=== PATIENT | female | born 1940 | race Caucasian/White ===

== ENCOUNTER 2020-10-28 16:14 | Inpatient (IN) | payer MEDICARE ==
[2020-10-28 17:48] LABS: #Basophils 0.1 10x3/uL (0.0-0.2); #Eosinphils 0.2 10x3/uL (0.0-0.5); #Monocytes 0.8 10x3/uL (0.0-1.1); #Neutrophils 6.4 10x3/uL (1.5-8.4); %Basophils 0.9 % (0.0-2.0); %Lymphocytes 17.2 % (18.0-47.0); %Monocytes 9.3 % (0.0-10.0); Hemoglobin 7.7 g/dL (12.0-15.5); Mean Corpuscular HGB CONC 30.9 g/dL (32.0-36.0); Mean Corpuscular Hemoglobin 27.8 pg (27.0-33.0); Mean Corpuscular Volume 89.9 fl (81.6-98.3); Mean Platelet Volume 10.5 fl (7.4-10.4); Platelet Count 336 10x3/uL (150-450); RBC Distribution Width 16.3 % (11.5-14.5); Red Blood Cell (RBC) Count 2.77 10x6/uL (3.90-5.03); White Blood Cell (WBC) Count 9.1 10x3/uL (3.5-10.5)
[2020-10-28 18:01] LABS: ALT (SGPT) 49 U/L (8-55); AST (SGOT) 47 U/L (5-34); Albumin 3.6 g/dL (3.4-4.8); Alkaline Phosphatase 77 U/L (40-110); Anion Gap 15 mmol/L (10-20); BUN (Urea Nitrogen) 27 mg/dL (9.8-20.1); Bilirubin, Total 0.4 mg/dL (0.2-1.2); Calc. Creatinine Clearance 0 mL/min (70-130); Calcium 9.3 mg/dL (7.8-10.44); Carbon Dioxide 22 mmol/L (23-31); Chloride 102 mmol/L (98-107); Globulin 2.8 g/dL (2.4-3.5); Glucose 121 mg/dL (83-110); Potassium 4.1 mmol/L (3.5-5.1); Protein, Total 6.4 g/dL (5.8-8.1); Sodium 135 mmol/L (136-145)
[2020-10-28 18:26] LABS: Bilirubin Neg (Negative); Blood, Urine 150 (Negative); Clarity Clear (Clear); Glucose, Urine (Dipstick) Normal (Negative); Ketone, Urine Negative (Negative); Leukocyte Negative (Negative); Nitrite Negative (Negative); Protein, Urine (Dipstick) Negative (Neg-Trace); Urobilinogen Normal mg/dL (Less than 2); pH, Urine 6.5 (5.0-9.0)
[2020-10-28 18:50] LABS: Bacteria/HPF 2+ HPF (None Seen); RBC/HPF 0-3 HPF (0-3); Squamous Epithelial 0-3 HPF (0-3); WBC/HPF 0-3 HPF (0-3)
[2020-10-29] MEDS ORDERED: Lantus 1000 UNITS/10 ML VIAL SC SCH (00:15)
[2020-10-29 04:16] VITALS: BMI 34.3
[2020-10-29 04:54] LABS: Anion Gap 16 mmol/L (10-20); BUN (Urea Nitrogen) 25 mg/dL (9.8-20.1); Calc. Creatinine Clearance 98 mL/min (70-130); Calcium 9.3 mg/dL (7.8-10.44); Carbon Dioxide 20 mmol/L (23-31); Chloride 105 mmol/L (98-107); Glucose 123 mg/dL (83-110); Magnesium 1.7 mg/dL (1.6-2.6); Potassium 4.1 mmol/L (3.5-5.1); Sodium 137 mmol/L (136-145)
[2020-10-29 05:19] LABS: #Basophils 0.1 10x3/uL (0.0-0.2); #Eosinphils 0.2 10x3/uL (0.0-0.5); #Monocytes 0.9 10x3/uL (0.0-1.1); #Neutrophils 6.2 10x3/uL (1.5-8.4); %Basophils 0.9 % (0.0-2.0); %Eosinophils 2.3 % (0.0-6.0); %Lymphocytes 15.7 % (18.0-47.0); %Monocytes 10.1 % (0.0-10.0); %Neutrophils 70.1 % (40.0-75.0); Hemoglobin 8.8 g/dL (12.0-15.5); Mean Corpuscular HGB CONC 32.4 g/dL (32.0-36.0); Mean Corpuscular Volume 83.4 fl (81.6-98.3); Mean Platelet Volume 10.8 fl (7.4-10.4); Platelet Count 241 10x3/uL (150-450); RBC Distribution Width 17.2 % (11.5-14.5); Red Blood Cell (RBC) Count 3.26 10x6/uL (3.90-5.03); White Blood Cell (WBC) Count 8.9 10x3/uL (3.5-10.5)
[2020-10-29] MEDS ORDERED: METHOTREXATE SC SCH (18:15)
[2020-10-29] MEDS ORDERED: Dextrose 5% in Water 1,000 ML IV PRN (18:16)
[2020-10-29] MEDS ORDERED: HumaLOG 300 UNITS/3 ML VIAL SC PRN (18:16)
[2020-10-29] MEDS ORDERED: Dextrose 50% Abboject 50 ML SYRINGE SLOW IVP PRN (18:16)
[2020-10-29] MEDS: Carvedilol 12.5 MG TAB PO SCH (22:49)
[2020-10-29] MEDS: Lantus 1000 UNITS/10 ML VIAL SC SCH (22:50)
[2020-10-29] MEDS ORDERED: Pantoprazole 40 MG VIAL IVP SCH (23:59)
[2020-10-30] MEDS: Apixaban 5 MG TAB PO SCH (01:51)
[2020-10-30 06:26] LABS: #Basophils 0.1 10x3/uL (0.0-0.2); #Eosinphils 0.2 10x3/uL (0.0-0.5); #Monocytes 0.6 10x3/uL (0.0-1.1); #Neutrophils 4.5 10x3/uL (1.5-8.4); %Basophils 1.1 % (0.0-2.0); %Eosinophils 3.5 % (0.0-6.0); %Monocytes 9.6 % (0.0-10.0); %Neutrophils 67.3 % (40.0-75.0); Mean Corpuscular HGB CONC 31.6 g/dL (32.0-36.0); Mean Corpuscular Hemoglobin 27.1 pg (27.0-33.0); Mean Corpuscular Volume 85.8 fl (81.6-98.3); Mean Platelet Volume 10.5 fl (7.4-10.4); Platelet Count 232 10x3/uL (150-450); RBC Distribution Width 16.8 % (11.5-14.5); Red Blood Cell (RBC) Count 2.95 10x6/uL (3.90-5.03); White Blood Cell (WBC) Count 6.7 10x3/uL (3.5-10.5)
[2020-10-30 06:37] LABS: Anion Gap 13 mmol/L (10-20); BUN (Urea Nitrogen) 15 mg/dL (9.8-20.1); Calc. Creatinine Clearance 114 mL/min (70-130); Calcium 8.7 mg/dL (7.8-10.44); Carbon Dioxide 23 mmol/L (23-31); Chloride 104 mmol/L (98-107); Glucose 152 mg/dL (83-110); Potassium 3.9 mmol/L (3.5-5.1); Sodium 136 mmol/L (136-145)
[2020-10-30] MEDS: Furosemide 40 MG TAB PO SCH ×2 (10:25→12:25)
[2020-10-30] MEDS: Digoxin 0.125 MG TAB PO SCH ×2 (10:26→12:25)
[2020-10-30] MEDS: Folic Acid 1 MG TAB PO SCH ×2 (10:26→12:25)
[2020-10-30] MEDS: Carvedilol 12.5 MG TAB PO SCH ×3 (10:26→21:06)
[2020-10-30] MEDS: Levothyroxine 150 MCG TAB PO SCH ×2 (10:27→12:26)
[2020-10-30] MEDS: Pantoprazole 40 MG VIAL IVP SCH (10:27)
[2020-10-30] MEDS: Losartan Potassium 50 MG TAB PO SCH ×2 (10:28→12:26)
[2020-10-30] MEDS: Hydrochlorothiazide 25 MG TAB PO SCH (12:25)
[2020-10-30] MEDS: Liothyronine Sodium 5 MCG TAB PO SCH (12:26)
[2020-10-30] MEDS: Lantus 1000 UNITS/10 ML VIAL SC SCH (12:26)
[2020-10-30 16:03] LABS: SARS-CoV-2 NAA Rapid Test Not Detected (NotDetected)
[2020-10-30] MEDS ORDERED: PROPOFOL 20 ML ONE (17:11)
[2020-10-30] MEDS ORDERED: GoLYTELY 4,000 ml Bottle PO SCH (18:00)
[2020-10-31] MEDS: Lantus 1000 UNITS/10 ML VIAL SC SCH ×3 (02:16→21:19)
[2020-10-31] MEDS: Carvedilol 12.5 MG TAB PO SCH ×2 (08:14→21:18)
[2020-10-31] MEDS: Digoxin 0.125 MG TAB PO SCH (08:14)
[2020-10-31] MEDS: Folic Acid 1 MG TAB PO SCH (08:15)
[2020-10-31] MEDS: Furosemide 40 MG TAB PO SCH ×2 (08:15→08:32)
[2020-10-31] MEDS: Hydrochlorothiazide 25 MG TAB PO SCH (08:15)
[2020-10-31] MEDS: Levothyroxine 150 MCG TAB PO SCH (08:15)
[2020-10-31] MEDS: Liothyronine Sodium 5 MCG TAB PO SCH (08:16)
[2020-10-31] MEDS: Pantoprazole 40 MG VIAL IVP SCH (08:16)
[2020-10-31] MEDS: Losartan Potassium 50 MG TAB PO SCH (08:16)
[2020-10-31 08:49] LABS: #Basophils 0.1 10x3/uL (0.0-0.2); #Eosinphils 0.3 10x3/uL (0.0-0.5); #Monocytes 0.5 10x3/uL (0.0-1.1); #Neutrophils 3.8 10x3/uL (1.5-8.4); %Basophils 0.9 % (0.0-2.0); %Eosinophils 4.6 % (0.0-6.0); %Lymphocytes 15.1 % (18.0-47.0); %Monocytes 8.9 % (0.0-10.0); Hemoglobin 8.5 g/dL (12.0-15.5); Mean Corpuscular HGB CONC 30.8 g/dL (32.0-36.0); Mean Corpuscular Hemoglobin 26.6 pg (27.0-33.0); Mean Corpuscular Volume 86.5 fl (81.6-98.3); Mean Platelet Volume 10.2 fl (7.4-10.4); Platelet Count 230 10x3/uL (150-450); RBC Distribution Width 16.3 % (11.5-14.5); Red Blood Cell (RBC) Count 3.19 10x6/uL (3.90-5.03); White Blood Cell (WBC) Count 5.5 10x3/uL (3.5-10.5)
[2020-10-31 08:57] LABS: Anion Gap 13 mmol/L (10-20); BUN (Urea Nitrogen) 11 mg/dL (9.8-20.1); Calc. Creatinine Clearance 114 mL/min (70-130); Calcium 8.7 mg/dL (7.8-10.44); Carbon Dioxide 26 mmol/L (23-31); Chloride 101 mmol/L (98-107); Glucose 129 mg/dL (83-110); Magnesium 1.5 mg/dL (1.6-2.6); Potassium 3.6 mmol/L (3.5-5.1); Sodium 136 mmol/L (136-145)
[2020-10-31] MEDS ORDERED: PROPOFOL 20 ML ONE (15:13)
[2020-10-31] MEDS ORDERED: Magnesium 2 GM/50 ML 2 GM in Premix Bag 1 BAG IVPB SCH (19:30)
[2020-10-31] MEDS ORDERED: Magnesium 2 GM/50 ML BAG (IN WATER) ONE (21:05)
[2020-10-31] MEDS: Apixaban 5 MG TAB PO SCH (21:18)
[2020-10-31] MEDS: Non-Formulary Medication 1 EACH (Apremilast [Otezla] 30 MG Tablet) PO SCH ×2 (21:29→21:30)
[2020-11-01] MEDS: Liothyronine Sodium 5 MCG TAB PO SCH (08:41)
[2020-11-01] MEDS: Digoxin 0.125 MG TAB PO SCH (08:41)
[2020-11-01] MEDS: Folic Acid 1 MG TAB PO SCH (08:41)
[2020-11-01] MEDS: Apixaban 5 MG TAB PO SCH (08:41)
[2020-11-01] MEDS: Levothyroxine 150 MCG TAB PO SCH (08:41)
[2020-11-01] MEDS: Carvedilol 12.5 MG TAB PO SCH (08:43)
[2020-11-01] MEDS: Pantoprazole 40 MG VIAL IVP SCH (08:44)
[2020-11-01 09:01] LABS: Hemoglobin 8.6 g/dL (12.0-15.5)
[2020-11-01 12:32] VITALS: BP 119/54; TEMP 97.8
[2020-11-01] MEDS: Lantus 1000 UNITS/10 ML VIAL SC SCH (12:32)
[2020-11-01] MEDS: Furosemide 40 MG TAB PO SCH (12:32)
[2020-11-01] MEDS: Hydrochlorothiazide 25 MG TAB PO SCH (12:32)
[2020-11-01] MEDS: Losartan Potassium 50 MG TAB PO SCH (12:33)
[2020-11-05] MEDS ORDERED: Non-Formulary Medication 1 EACH (Dulaglutide [Trulicity] 0.75 MG/0.5 ML Pen.Injctr) SQ SCH (09:00)
== END 2020-11-01 13:20 | disposition home or self-care (01) | DRG 812 ==
LOC: CSHERS 16:14 → CSHTELE 10-29 01:26 → OBSVTOIN 10-31 19:19
PROVIDERS: ADMIT Family Medicine; ATTEND Family Medicine
PROC: 0DJ08ZZ Inspection of Upper Intestinal Tract, Via Natural or Artificial Opening Endoscopic (ICD-10-PCS; 2020-10-30)
PROC: 30233N1 Transfusion of Nonautologous Red Blood Cells into Peripheral Vein, Percutaneous Approach (ICD-10-PCS; principal; 2020-10-31)
PROC: 0DBH8ZZ Excision of Cecum, Via Natural or Artificial Opening Endoscopic (ICD-10-PCS; 2020-10-31)
DX: D64.9 Anemia, unspecified (principal); K57.30 Diverticulosis of large intestine without perforation or abscess without bleeding; K64.4 Residual hemorrhoidal skin tags; Z95.0 Presence of cardiac pacemaker; I10 Essential (primary) hypertension; Z79.01 Long term (current) use of anticoagulants; Z86.73 Personal history of transient ischemic attack (TIA), and cerebral infarction without residual deficits; E11.9 Type 2 diabetes mellitus without complications; Z79.4 Long term (current) use of insulin; Z88.8 Allergy status to other drugs, medicaments and biological substances; I48.91 Unspecified atrial fibrillation; Z20.822 Contact with and (suspected) exposure to COVID-19
CPT/HCPCS: 36415; 36416; 36430; 71045; 80048; 81003; 81015; 82274; 82607; 82728; 82746; 83735; 83880; 84443; 84484; 85014; 85018; 85025; 86850; 86900; 86901; 88305; 93005; 93010; 93306; 94760; 96374; 96376; C9113; G0378; J1815; J2704; J3475; P9016; U0002

== ENCOUNTER 2021-06-10 09:19 | Inpatient (IN) | payer MEDICARE ==
[2021-06-10 10:01] LABS: #Basophils 0.1 10x3/uL (0.0-0.2); #Monocytes 0.6 10x3/uL (0.0-1.1); #Neutrophils 17.1 10x3/uL (1.5-8.4); %Basophils 0.3 % (0.0-2.0); %Eosinophils 0.1 % (0.0-6.0); %Lymphocytes 3.2 % (18.0-47.0); %Monocytes 3.4 % (0.0-10.0); %Neutrophils 92.2 % (40.0-75.0); Hemoglobin 7.9 g/dL (12.0-15.5); Mean Corpuscular HGB CONC 32.4 g/dL (32.0-36.0); Mean Corpuscular Hemoglobin 29.8 pg (27.0-33.0); Mean Corpuscular Volume 92.1 fl (81.6-98.3); Mean Platelet Volume 9.8 fl (7.4-10.4); Platelet Count 274 10x3/uL (150-450); Red Blood Cell (RBC) Count 2.65 10x6/uL (3.90-5.03); White Blood Cell (WBC) Count 18.6 10x3/uL (3.5-10.5)
[2021-06-10 10:35] LABS: ALT (SGPT) 94 U/L (8-55); AST (SGOT) 94 U/L (5-34); Albumin 2.9 g/dL (3.4-4.8); Alkaline Phosphatase 128 U/L (40-110); Anion Gap 14 mmol/L (10-20); BUN (Urea Nitrogen) 36 mg/dL (9.8-20.1); Calc. Creatinine Clearance 0 mL/min (70-130); Calcium 8.6 mg/dL (7.8-10.44); Carbon Dioxide 23 mmol/L (23-31); Chloride 104 mmol/L (98-107); Globulin 2.7 g/dL (2.4-3.5); Glucose 121 mg/dL (83-110); Magnesium 2.2 mg/dL (1.6-2.6); Potassium 4.6 mmol/L (3.5-5.1); Protein, Total 5.6 g/dL (5.8-8.1); Sodium 136 mmol/L (136-145)
[2021-06-10] MEDS ORDERED: Furosemide 40 MG/4 ML VIAL ONE (11:02)
[2021-06-10] MEDS ORDERED: Furosemide 40 MG TAB ONE (11:40)
[2021-06-10 12:49] LABS: Bilirubin Neg (Negative); Blood, Urine Negative (Negative); Clarity Slightly Cloudy (Clear); Glucose, Urine (Dipstick) Normal (Negative); Ketone, Urine 5 mg/dL (Negative); Leukocyte 25 (Negative); Nitrite Negative (Negative); Protein, Urine (Dipstick) 30 mg/dl (Neg-Trace)
[2021-06-10 13:07] LABS: CKMB 1.1 ng/mL (0-6.6)
[2021-06-10 13:22] LABS: Bacteria/HPF 4+ HPF (None Seen); RBC/HPF 0-3 HPF (0-3); Squamous Epithelial 0-3 HPF (0-3); Transitional Epithelial 0-3 HPF (None Seen)
[2021-06-10 13:23] LABS: Mucous/LPF 1+ LPF (<2+)
[2021-06-10] MEDS ORDERED: cefTRIAXone\\ROCEPHIN 1 GM VIAL ONE (14:45)
[2021-06-10] MEDS ORDERED: cefTRIAXone\\ROCEPHIN 1 GM in Sodium Chloride 0.9% 100 ML IVPB SCH (18:00)
[2021-06-10 18:02] VITALS: BMI 44.6
[2021-06-10] MEDS: Carvedilol 12.5 MG TAB PO SCH (20:13)
[2021-06-10] MEDS: Albumin 25% 25 GM/100 ML BOT IVPB SCH (20:13)
[2021-06-10] MEDS: Apixaban 5 MG TAB PO SCH (20:13)
[2021-06-11] MEDS: Albumin 25% 25 GM/100 ML BOT IVPB SCH ×2 (01:35→09:03)
[2021-06-11 05:01] LABS: #Basophils 0.1 10x3/uL (0.0-0.2); #Eosinphils 0.2 10x3/uL (0.0-0.5); #Monocytes 0.8 10x3/uL (0.0-1.1); #Neutrophils 7.9 10x3/uL (1.5-8.4); %Basophils 0.6 % (0.0-2.0); %Eosinophils 2.4 % (0.0-6.0); %Lymphocytes 8.8 % (18.0-47.0); %Neutrophils 79.7 % (40.0-75.0); Hemoglobin 7.2 g/dL (12.0-15.5); Mean Corpuscular HGB CONC 32.4 g/dL (32.0-36.0); Mean Corpuscular Volume 92.5 fl (81.6-98.3); Mean Platelet Volume 10.1 fl (7.4-10.4); Platelet Count 254 10x3/uL (150-450); RBC Distribution Width 19.9 % (11.5-14.5)
[2021-06-11 05:27] LABS: Anion Gap 13 mmol/L (10-20); BUN (Urea Nitrogen) 38 mg/dL (9.8-20.1); Calc. Creatinine Clearance 110 mL/min (70-130); Calcium 8.6 mg/dL (7.8-10.44); Carbon Dioxide 23 mmol/L (23-31); Chloride 105 mmol/L (98-107); Glucose 134 mg/dL (83-110); Potassium 4.5 mmol/L (3.5-5.1); Sodium 136 mmol/L (136-145)
[2021-06-11] MEDS: Furosemide 40 MG/4 ML VIAL SLOW IVP SCH ×2 (06:03→15:37)
[2021-06-11] MEDS: Nystatin Powder 15 GM BOT TOP SCH ×2 (09:02→21:45)
[2021-06-11] MEDS: Apixaban 5 MG TAB PO SCH (09:02)
[2021-06-11] MEDS: Carvedilol 12.5 MG TAB PO SCH ×2 (09:02→21:32)
[2021-06-11] MEDS ORDERED: Dextrose 5% in Water 1,000 ML IV PRN (11:06)
[2021-06-11] MEDS ORDERED: Dextrose 50% Abboject 50 ML SYRINGE SLOW IVP PRN (11:06)
[2021-06-11] MEDS ORDERED: Digoxin 0.25 MG TAB PO SCH (12:00)
[2021-06-11] MEDS ORDERED: VANCOMYCIN 2 GRAM/400 ML BAG 2 GM in Premix Bag 1 BAG IVPB SCH (12:00)
[2021-06-11] MEDS: cefTRIAXone\\ROCEPHIN 1 GM in Sodium Chloride 0.9% 100 ML IVPB SCH (15:38)
[2021-06-11] MEDS ORDERED: Iopamidol 300 61% 100 ML VIAL FS ONE (16:11)
[2021-06-11 18:12] LABS: SARS-CoV-2 PCR by NAA Not Detected (NotDetected)
[2021-06-11] MEDS: Lantus 1000 UNITS/10 ML VIAL SC SCH (21:29)
[2021-06-11] MEDS: Acetaminophen 325 MG TAB PO PRN (21:31)
[2021-06-11] MEDS: Liothyronine Sodium 5 MCG TAB PO SCH (21:32)
[2021-06-11] MEDS: Cholecalciferol 1,000 UNITS (25 MCG) TAB PO SCH (21:33)
[2021-06-12 05:24] LABS: #Basophils 0.1 10x3/uL (0.0-0.2); #Eosinphils 0.3 10x3/uL (0.0-0.5); #Neutrophils 6.4 10x3/uL (1.5-8.4); %Basophils 0.7 % (0.0-2.0); %Eosinophils 3.5 % (0.0-6.0); %Lymphocytes 11.5 % (18.0-47.0); %Monocytes 11.4 % (0.0-10.0); %Neutrophils 71.8 % (40.0-75.0); Hemoglobin 8.4 g/dL (12.0-15.5); Mean Corpuscular Hemoglobin 29.2 pg (27.0-33.0); Mean Corpuscular Volume 85.8 fl (81.6-98.3); Mean Platelet Volume 10.3 fl (7.4-10.4); Platelet Count 240 10x3/uL (150-450); RBC Distribution Width 21.3 % (11.5-14.5); Red Blood Cell (RBC) Count 2.88 10x6/uL (3.90-5.03)
[2021-06-12] MEDS: VANCOMYCIN 1.75 GM/350 ML BAG 1.75 GM in Premix Bag 1 BAG IVPB SCH ×2 (06:25→23:17)
[2021-06-12] MEDS: Levothyroxine Sodium 100 MCG TAB PO SCH (06:25)
[2021-06-12] MEDS: Levothyroxine Sodium 75 MCG TAB PO SCH (06:25)
[2021-06-12] MEDS: Furosemide 40 MG/4 ML VIAL SLOW IVP SCH ×2 (06:26→14:23)
[2021-06-12 06:48] LABS: ALT (SGPT) 78 U/L (8-55); AST (SGOT) 64 U/L (5-34); Albumin 3.3 g/dL (3.4-4.8); Alkaline Phosphatase 113 U/L (40-110); Anion Gap 15 mmol/L (10-20); BUN (Urea Nitrogen) 42 mg/dL (9.8-20.1); Bilirubin, Total 0.9 mg/dL (0.2-1.2); Calc. Creatinine Clearance 107 mL/min (70-130); Calcium 8.7 mg/dL (7.8-10.44); Carbon Dioxide 20 mmol/L (23-31); Chloride 105 mmol/L (98-107); Globulin 2.5 g/dL (2.4-3.5); Glucose 154 mg/dL (83-110); Potassium 4.9 mmol/L (3.5-5.1); Protein, Total 5.8 g/dL (5.8-8.1); Sodium 135 mmol/L (136-145)
[2021-06-12] MEDS ORDERED: Senokot 8.6 MG TAB PO PRN (08:46)
[2021-06-12] MEDS ORDERED: Senokot 8.6 MG TAB PO SCH (09:00)
[2021-06-12] MEDS ORDERED: Levothyroxine 150 MCG TAB PO SCH (09:00)
[2021-06-12] MEDS ORDERED: Iron Sucrose Complex 200 MG in Sodium Chloride 0.9% 100 ML IVPB SCH (09:45)
[2021-06-12] MEDS: Liothyronine Sodium 5 MCG TAB PO SCH ×2 (09:50→20:36)
[2021-06-12] MEDS: Cholecalciferol 1,000 UNITS (25 MCG) TAB PO SCH ×2 (09:55→20:37)
[2021-06-12] MEDS: Carvedilol 12.5 MG TAB PO SCH ×2 (09:55→20:37)
[2021-06-12] MEDS: Hydrochlorothiazide 25 MG TAB PO SCH (09:56)
[2021-06-12] MEDS: Losartan Potassium 50 MG TAB PO SCH (09:57)
[2021-06-12] MEDS: Digoxin 0.125 MG TAB PO SCH (09:58)
[2021-06-12] MEDS: Acetaminophen 325 MG TAB PO PRN ×2 (10:02→14:21)
[2021-06-12] MEDS: Folic Acid 1 MG TAB PO SCH (10:02)
[2021-06-12] MEDS: Nystatin Powder 15 GM BOT TOP SCH ×2 (10:07→23:04)
[2021-06-12] MEDS: Lantus 1000 UNITS/10 ML VIAL SC SCH ×2 (10:07→20:43)
[2021-06-12] MEDS ORDERED: Iron, Sodium Ferric Gluconate 250 MG in Sodium Chloride 0.9% 250 ML 250 ML IVPB SCH (10:30)
[2021-06-12] MEDS: Potassium Chloride 20 MEQ TAB PO SCH (11:00)
[2021-06-12] MEDS: HumaLOG 300 UNITS/3 ML VIAL SC PRN ×2 (12:38→18:02)
[2021-06-12] MEDS: cefTRIAXone\\ROCEPHIN 1 GM in Sodium Chloride 0.9% 100 ML IVPB SCH (14:27)
[2021-06-13 05:57] LABS: #Basophils 0.1 10x3/uL (0.0-0.2); #Eosinphils 0.4 10x3/uL (0.0-0.5); #Neutrophils 4.9 10x3/uL (1.5-8.4); %Basophils 1.1 % (0.0-2.0); %Eosinophils 5.7 % (0.0-6.0); %Lymphocytes 10.7 % (18.0-47.0); %Monocytes 13.7 % (0.0-10.0); Hemoglobin 8.9 g/dL (12.0-15.5); Mean Corpuscular Hemoglobin 28.9 pg (27.0-33.0); Mean Corpuscular Volume 87.7 fl (81.6-98.3); Mean Platelet Volume 9.7 fl (7.4-10.4); Platelet Count 246 10x3/uL (150-450); RBC Distribution Width 21.4 % (11.5-14.5); Red Blood Cell (RBC) Count 3.08 10x6/uL (3.90-5.03); White Blood Cell (WBC) Count 7.2 10x3/uL (3.5-10.5)
[2021-06-13 06:04] LABS: Anion Gap 18 mmol/L (10-20); BUN (Urea Nitrogen) 36 mg/dL (9.8-20.1); Calc. Creatinine Clearance 113 mL/min (70-130); Calcium 8.7 mg/dL (7.8-10.44); Carbon Dioxide 19 mmol/L (23-31); Chloride 103 mmol/L (98-107); Glucose 134 mg/dL (83-110); Potassium 4.1 mmol/L (3.5-5.1); Sodium 136 mmol/L (136-145)
[2021-06-13] MEDS: Furosemide 40 MG/4 ML VIAL SLOW IVP SCH ×2 (06:25→12:55)
[2021-06-13] MEDS: Levothyroxine Sodium 100 MCG TAB PO SCH (06:26)
[2021-06-13] MEDS: Levothyroxine Sodium 75 MCG TAB PO SCH (06:26)
[2021-06-13 09:02] LABS: INR-International Normal Ratio 1.3
[2021-06-13] MEDS: Liothyronine Sodium 5 MCG TAB PO SCH ×2 (10:10→21:51)
[2021-06-13] MEDS: Digoxin 0.125 MG TAB PO SCH (10:12)
[2021-06-13] MEDS: Cholecalciferol 1,000 UNITS (25 MCG) TAB PO SCH ×2 (10:12→21:52)
[2021-06-13] MEDS: Hydrochlorothiazide 25 MG TAB PO SCH (10:14)
[2021-06-13] MEDS: Losartan Potassium 50 MG TAB PO SCH (10:14)
[2021-06-13] MEDS: Carvedilol 12.5 MG TAB PO SCH ×2 (10:16→21:52)
[2021-06-13] MEDS: Lantus 1000 UNITS/10 ML VIAL SC SCH ×2 (10:16→21:53)
[2021-06-13] MEDS: Folic Acid 1 MG TAB PO SCH (10:16)
[2021-06-13] MEDS: Nystatin Powder 15 GM BOT TOP SCH ×2 (10:17→22:03)
[2021-06-13] MEDS: Potassium Chloride 20 MEQ TAB PO SCH (10:18)
[2021-06-13] MEDS: Acetaminophen 325 MG TAB PO PRN ×2 (15:07→21:52)
[2021-06-13 17:25] LABS: Vancomycin, Trough 22.2 ug/mL
[2021-06-13] MEDS: Ampicillin 2 GM in Sodium Chloride 0.9% 100 ML IVPB SCH ×2 (17:25→21:52)
[2021-06-13] MEDS: HumaLOG 300 UNITS/3 ML VIAL SC PRN (17:27)
[2021-06-13] MEDS: cefTRIAXone\\ROCEPHIN 1 GM in Sodium Chloride 0.9% 100 ML IVPB SCH (21:53)
[2021-06-14] MEDS ORDERED: VANCOMYCIN 1.75 GM/350 ML BAG 1.75 GM in Premix Bag 1 BAG IVPB SCH
[2021-06-14] MEDS: Ampicillin 2 GM in Sodium Chloride 0.9% 100 ML IVPB SCH ×6 (01:36→20:18)
[2021-06-14 04:46] LABS: #Basophils 0.1 10x3/uL (0.0-0.2); #Eosinphils 0.3 10x3/uL (0.0-0.5); #Monocytes 1.1 10x3/uL (0.0-1.1); #Neutrophils 6.1 10x3/uL (1.5-8.4); %Eosinophils 3.9 % (0.0-6.0); %Lymphocytes 10.9 % (18.0-47.0); %Monocytes 12.6 % (0.0-10.0); %Neutrophils 70.3 % (40.0-75.0); Hemoglobin 8.2 g/dL (12.0-15.5); Mean Corpuscular HGB CONC 32.5 g/dL (32.0-36.0); Mean Corpuscular Hemoglobin 29.2 pg (27.0-33.0); Mean Corpuscular Volume 89.7 fl (81.6-98.3); Mean Platelet Volume 9.9 fl (7.4-10.4); Platelet Count 265 10x3/uL (150-450); RBC Distribution Width 21.2 % (11.5-14.5); Red Blood Cell (RBC) Count 2.81 10x6/uL (3.90-5.03); White Blood Cell (WBC) Count 8.7 10x3/uL (3.5-10.5)
[2021-06-14 05:06] LABS: Anion Gap 14 mmol/L (10-20); BUN (Urea Nitrogen) 31 mg/dL (9.8-20.1); Calc. Creatinine Clearance 120 mL/min (70-130); Calcium 8.4 mg/dL (7.8-10.44); Carbon Dioxide 24 mmol/L (23-31); Chloride 103 mmol/L (98-107); Glucose 117 mg/dL (83-110); Potassium 3.7 mmol/L (3.5-5.1); Sodium 137 mmol/L (136-145)
[2021-06-14] MEDS: Furosemide 40 MG/4 ML VIAL SLOW IVP SCH ×2 (05:51→14:48)
[2021-06-14] MEDS: Levothyroxine Sodium 100 MCG TAB PO SCH (05:51)
[2021-06-14] MEDS: Levothyroxine Sodium 75 MCG TAB PO SCH (05:51)
[2021-06-14] MEDS: Acetaminophen 325 MG TAB PO PRN ×3 (06:03→22:39)
[2021-06-14] MEDS: cefTRIAXone\\ROCEPHIN 1 GM in Sodium Chloride 0.9% 100 ML IVPB SCH ×2 (10:42→20:18)
[2021-06-14] MEDS: Lantus 1000 UNITS/10 ML VIAL SC SCH ×2 (10:44→20:35)
[2021-06-14] MEDS: Folic Acid 1 MG TAB PO SCH (10:45)
[2021-06-14] MEDS: Hydrochlorothiazide 25 MG TAB PO SCH (10:45)
[2021-06-14] MEDS: Liothyronine Sodium 5 MCG TAB PO SCH ×2 (10:45→20:19)
[2021-06-14] MEDS: Potassium Chloride 20 MEQ TAB PO SCH (10:45)
[2021-06-14] MEDS: Cholecalciferol 1,000 UNITS (25 MCG) TAB PO SCH ×2 (10:46→20:21)
[2021-06-14] MEDS: Digoxin 0.125 MG TAB PO SCH (10:46)
[2021-06-14] MEDS: Nystatin Powder 15 GM BOT TOP SCH ×2 (10:47→20:24)
[2021-06-14] MEDS: Losartan Potassium 50 MG TAB PO SCH (10:47)
[2021-06-14] MEDS: Carvedilol 12.5 MG TAB PO SCH ×2 (10:47→20:20)
[2021-06-14] MEDS ORDERED: Polyethylene Glycol 3350 17 GM Packet PO PRN (12:15)
[2021-06-14] MEDS: HumaLOG 300 UNITS/3 ML VIAL SC PRN ×2 (18:19→20:35)
[2021-06-14] MEDS: Senokot 8.6 MG TAB PO SCH (20:19)
[2021-06-14] MEDS: Enoxaparin Sodium 120 MG/0.8 ML SYRINGE SC SCH (20:21)
[2021-06-15] MEDS: Ampicillin 2 GM in Sodium Chloride 0.9% 100 ML IVPB SCH ×6 (00:52→20:15)
[2021-06-15] MEDS: Levothyroxine Sodium 75 MCG TAB PO SCH (05:41)
[2021-06-15] MEDS: Levothyroxine Sodium 100 MCG TAB PO SCH (05:41)
[2021-06-15] MEDS: Furosemide 40 MG/4 ML VIAL SLOW IVP SCH ×2 (05:52→13:06)
[2021-06-15] MEDS ORDERED: Enoxaparin Sodium 120 MG/0.8 ML SYRINGE SC ONE (09:51)
[2021-06-15] MEDS: cefTRIAXone\\ROCEPHIN 1 GM in Sodium Chloride 0.9% 100 ML IVPB SCH ×2 (10:02→20:16)
[2021-06-15] MEDS: Enoxaparin Sodium 120 MG/0.8 ML SYRINGE SC SCH (10:03)
[2021-06-15] MEDS: Cholecalciferol 1,000 UNITS (25 MCG) TAB PO SCH ×2 (10:04→20:23)
[2021-06-15] MEDS: Liothyronine Sodium 5 MCG TAB PO SCH ×2 (10:04→20:22)
[2021-06-15] MEDS: Losartan Potassium 50 MG TAB PO SCH (10:04)
[2021-06-15] MEDS: Folic Acid 1 MG TAB PO SCH (10:05)
[2021-06-15] MEDS: Hydrochlorothiazide 25 MG TAB PO SCH (10:05)
[2021-06-15] MEDS: Carvedilol 12.5 MG TAB PO SCH ×2 (10:05→20:23)
[2021-06-15] MEDS: Digoxin 0.125 MG TAB PO SCH (10:05)
[2021-06-15] MEDS: Lantus 1000 UNITS/10 ML VIAL SC SCH ×2 (10:06→20:23)
[2021-06-15] MEDS: Nystatin Powder 15 GM BOT TOP SCH ×2 (10:06→20:24)
[2021-06-15] MEDS: Potassium Chloride 20 MEQ TAB PO SCH (10:06)
[2021-06-15] MEDS: HumaLOG 300 UNITS/3 ML VIAL SC PRN ×3 (13:06→20:25)
[2021-06-15 15:30] LABS: INR-International Normal Ratio 1.3
[2021-06-15] MEDS: Acetaminophen 325 MG TAB PO PRN ×2 (17:33→23:16)
[2021-06-15] MEDS: Senokot 8.6 MG TAB PO SCH (20:23)
[2021-06-16] MEDS: Ampicillin 2 GM in Sodium Chloride 0.9% 100 ML IVPB SCH ×7 (00:51→20:38)
[2021-06-16] MEDS: Furosemide 40 MG/4 ML VIAL SLOW IVP SCH ×2 (05:22→16:21)
[2021-06-16 05:43] LABS: #Basophils 0.1 10x3/uL (0.0-0.2); #Eosinphils 0.4 10x3/uL (0.0-0.5); #Monocytes 1.1 10x3/uL (0.0-1.1); #Neutrophils 5.9 10x3/uL (1.5-8.4); %Basophils 1.1 % (0.0-2.0); %Eosinophils 4.7 % (0.0-6.0); %Lymphocytes 11.8 % (18.0-47.0); %Monocytes 12.6 % (0.0-10.0); %Neutrophils 69.1 % (40.0-75.0); Hemoglobin 8.8 g/dL (12.0-15.5); Mean Corpuscular HGB CONC 33.6 g/dL (32.0-36.0); Mean Corpuscular Hemoglobin 29.6 pg (27.0-33.0); Mean Corpuscular Volume 88.2 fl (81.6-98.3); Mean Platelet Volume 9.6 fl (7.4-10.4); Platelet Count 273 10x3/uL (150-450); RBC Distribution Width 22.3 % (11.5-14.5); Red Blood Cell (RBC) Count 2.97 10x6/uL (3.90-5.03); White Blood Cell (WBC) Count 8.5 10x3/uL (3.5-10.5)
[2021-06-16 05:56] LABS: Anisocytosis SLIGHT = 6-15 cells (100X) (0-5/hpf); Ovalocytes SLIGHT = 2-5 cells (100X) (0-1/hpf)
[2021-06-16 05:57] LABS: Platelet Morphology Comment Appears Adequate
[2021-06-16 06:03] LABS: ALT (SGPT) 66 U/L (8-55); AST (SGOT) 66 U/L (5-34); Albumin 2.7 g/dL (3.4-4.8); Alkaline Phosphatase 114 U/L (40-110); Anion Gap 12 mmol/L (10-20); BUN (Urea Nitrogen) 26 mg/dL (9.8-20.1); Bilirubin, Total 0.5 mg/dL (0.2-1.2); Calc. Creatinine Clearance 139 mL/min (70-130); Calcium 8.2 mg/dL (7.8-10.44); Carbon Dioxide 27 mmol/L (23-31); Chloride 103 mmol/L (98-107); Globulin 2.4 g/dL (2.4-3.5); Potassium 3.2 mmol/L (3.5-5.1); Protein, Total 5.1 g/dL (5.8-8.1); Sodium 139 mmol/L (136-145)
[2021-06-16] MEDS: Levothyroxine Sodium 75 MCG TAB PO SCH (06:59)
[2021-06-16] MEDS: Carvedilol 12.5 MG TAB PO SCH ×2 (06:59→20:35)
[2021-06-16] MEDS: Levothyroxine Sodium 100 MCG TAB PO SCH (07:01)
[2021-06-16 07:04] LABS: Glucose 44 mg/dL (83-110)
[2021-06-16] MEDS ORDERED: Dextrose 10% in Water 250 ML IV SCH (09:45)
[2021-06-16] MEDS: cefTRIAXone\\ROCEPHIN 1 GM in Sodium Chloride 0.9% 100 ML IVPB SCH ×2 (10:42→21:46)
[2021-06-16] MEDS: Acetaminophen 325 MG TAB PO PRN (11:23)
[2021-06-16] MEDS: Liothyronine Sodium 5 MCG TAB PO SCH ×2 (11:26→20:34)
[2021-06-16] MEDS: Potassium Chloride 20 MEQ TAB PO SCH (11:30)
[2021-06-16] MEDS: Digoxin 0.125 MG TAB PO SCH (11:34)
[2021-06-16] MEDS: Nystatin Powder 15 GM BOT TOP SCH ×2 (11:40→20:35)
[2021-06-16] MEDS: Lantus 1000 UNITS/10 ML VIAL SC SCH ×2 (11:48→20:49)
[2021-06-16] MEDS: Folic Acid 1 MG TAB PO SCH (11:49)
[2021-06-16] MEDS: Cholecalciferol 1,000 UNITS (25 MCG) TAB PO SCH ×2 (11:49→20:35)
[2021-06-16] MEDS: Hydrochlorothiazide 25 MG TAB PO SCH ×2 (11:49→17:53)
[2021-06-16] MEDS ORDERED: Sodium Bicarbonate 2.5 MEQ/5 ML VIAL ONE ×2 (12:34→12:57)
[2021-06-16] MEDS ORDERED: Lidocaine 1% PF 5 ML VIAL ONE ×2 (12:34→12:57)
[2021-06-16 16:04] LABS: BF Color Yellow; Body Fluid Source Ascites Body Fluid; Clarity Hazy (Clear); Tube # EDTA
[2021-06-16 17:41] LABS: BF Segmented Neutrophils 5 %; Cell Count Non Hematic 6 %; Lymphocytes 89 %
[2021-06-16 20:30] LABS: Fluid, Protein 1.5 g/dL (Not Available)
[2021-06-16] MEDS: Senokot 8.6 MG TAB PO SCH ×2 (20:35→20:36)
[2021-06-16] MEDS ORDERED: HumaLOG 300 UNITS/3 ML VIAL ONE (20:37)
[2021-06-16] MEDS: HumaLOG 300 UNITS/3 ML VIAL SC PRN (20:47)
[2021-06-17] MEDS: Ampicillin 2 GM in Sodium Chloride 0.9% 100 ML IVPB SCH ×6 (00:46→20:29)
[2021-06-17] MEDS: Levothyroxine Sodium 75 MCG TAB PO SCH (05:21)
[2021-06-17] MEDS: Levothyroxine Sodium 100 MCG TAB PO SCH (05:21)
[2021-06-17] MEDS: Furosemide 40 MG/4 ML VIAL SLOW IVP SCH ×2 (05:26→16:10)
[2021-06-17] MEDS: Carvedilol 12.5 MG TAB PO SCH ×2 (06:51→20:34)
[2021-06-17] MEDS: Cholecalciferol 1,000 UNITS (25 MCG) TAB PO SCH ×2 (09:34→20:34)
[2021-06-17] MEDS: Folic Acid 1 MG TAB PO SCH (09:34)
[2021-06-17] MEDS: Liothyronine Sodium 5 MCG TAB PO SCH ×2 (09:34→20:44)
[2021-06-17] MEDS: Digoxin 0.125 MG TAB PO SCH (09:35)
[2021-06-17] MEDS: Potassium Chloride 20 MEQ TAB PO SCH (09:35)
[2021-06-17] MEDS: cefTRIAXone\\ROCEPHIN 1 GM in Sodium Chloride 0.9% 100 ML IVPB SCH ×2 (09:36→21:48)
[2021-06-17] MEDS: Hydrochlorothiazide 25 MG TAB PO SCH ×2 (09:37→16:07)
[2021-06-17] MEDS: Losartan Potassium 50 MG TAB PO SCH ×2 (09:37→16:07)
[2021-06-17] MEDS: Lantus 1000 UNITS/10 ML VIAL SC SCH ×2 (09:37→20:33)
[2021-06-17 10:24] LABS: ALT (SGPT) 64 U/L (8-55); AST (SGOT) 76 U/L (5-34); Albumin 2.8 g/dL (3.4-4.8); Alkaline Phosphatase 129 U/L (40-110); Anion Gap 12 mmol/L (10-20); BUN (Urea Nitrogen) 25 mg/dL (9.8-20.1); Bilirubin, Total 0.7 mg/dL (0.2-1.2); Calc. Creatinine Clearance 131 mL/min (70-130); Calcium 8.5 mg/dL (7.8-10.44); Carbon Dioxide 29 mmol/L (23-31); Chloride 101 mmol/L (98-107); Globulin 2.7 g/dL (2.4-3.5); Glucose 119 mg/dL (83-110); Potassium 3.5 mmol/L (3.5-5.1); Protein, Total 5.5 g/dL (5.8-8.1); Sodium 138 mmol/L (136-145)
[2021-06-17] MEDS ORDERED: Lidocaine 1% PF 5 ML VIAL ONE (13:00)
[2021-06-17] MEDS ORDERED: Sodium Bicarbonate 2.5 MEQ/5 ML VIAL ONE (13:00)
[2021-06-17] MEDS: Nystatin Powder 15 GM BOT TOP SCH ×2 (15:44→20:35)
[2021-06-17] MEDS: Nystatin 500,000 UNITS/5 ML UDCUP SSW SCH ×2 (18:30→20:40)
[2021-06-17] MEDS: Acetaminophen 325 MG TAB PO PRN (18:31)
[2021-06-17] MEDS: Enoxaparin Sodium 120 MG/0.8 ML SYRINGE SC SCH (20:36)
[2021-06-18] MEDS: Ampicillin 2 GM in Sodium Chloride 0.9% 100 ML IVPB SCH ×6 (00:31→20:39)
[2021-06-18] MEDS: Levothyroxine Sodium 75 MCG TAB PO SCH (05:25)
[2021-06-18] MEDS: Levothyroxine Sodium 100 MCG TAB PO SCH (05:25)
[2021-06-18] MEDS: Furosemide 40 MG/4 ML VIAL SLOW IVP SCH ×2 (05:26→13:54)
[2021-06-18] MEDS: Carvedilol 12.5 MG TAB PO SCH ×2 (05:35→20:41)
[2021-06-18] MEDS: Enoxaparin Sodium 120 MG/0.8 ML SYRINGE SC SCH ×2 (09:00→20:42)
[2021-06-18] MEDS: Nystatin 500,000 UNITS/5 ML UDCUP SSW SCH ×4 (09:00→20:58)
[2021-06-18] MEDS: Lantus 1000 UNITS/10 ML VIAL SC SCH ×2 (09:00→20:43)
[2021-06-18] MEDS ORDERED: Lidocaine 1% PF 5 ML VIAL ONE (09:51)
[2021-06-18] MEDS ORDERED: Sodium Bicarbonate 2.5 MEQ/5 ML VIAL ONE (09:52)
[2021-06-18] MEDS: cefTRIAXone\\ROCEPHIN 1 GM in Sodium Chloride 0.9% 100 ML IVPB SCH ×2 (13:53→20:57)
[2021-06-18] MEDS: Losartan Potassium 50 MG TAB PO SCH (13:54)
[2021-06-18] MEDS: Digoxin 0.125 MG TAB PO SCH (13:54)
[2021-06-18] MEDS: Hydrochlorothiazide 25 MG TAB PO SCH (13:55)
[2021-06-18] MEDS: Potassium Chloride 20 MEQ TAB PO SCH (13:55)
[2021-06-18] MEDS: Cholecalciferol 1,000 UNITS (25 MCG) TAB PO SCH ×2 (13:55→20:41)
[2021-06-18] MEDS: Folic Acid 1 MG TAB PO SCH (13:55)
[2021-06-18] MEDS: Nystatin Powder 15 GM BOT TOP SCH ×2 (13:58→21:00)
[2021-06-18] MEDS: Liothyronine Sodium 5 MCG TAB PO SCH ×2 (17:44→22:10)
[2021-06-18] MEDS: HumaLOG 300 UNITS/3 ML VIAL SC PRN ×2 (17:47→20:45)
[2021-06-18] MEDS: Senokot 8.6 MG TAB PO SCH (20:41)
[2021-06-18] MEDS: Acetaminophen 325 MG TAB PO PRN (23:39)
[2021-06-19] MEDS: Ampicillin 2 GM in Sodium Chloride 0.9% 100 ML IVPB SCH ×5 (01:17→17:20)
[2021-06-19] MEDS: Levothyroxine Sodium 75 MCG TAB PO SCH (05:01)
[2021-06-19] MEDS: Levothyroxine Sodium 100 MCG TAB PO SCH (05:01)
[2021-06-19] MEDS: Furosemide 40 MG/4 ML VIAL SLOW IVP SCH ×2 (05:01→13:33)
[2021-06-19] MEDS: Nystatin 500,000 UNITS/5 ML UDCUP SSW SCH ×3 (09:30→17:19)
[2021-06-19] MEDS: Enoxaparin Sodium 120 MG/0.8 ML SYRINGE SC SCH (09:56)
[2021-06-19] MEDS: Hydrochlorothiazide 25 MG TAB PO SCH (09:57)
[2021-06-19] MEDS: Folic Acid 1 MG TAB PO SCH (09:57)
[2021-06-19] MEDS: Carvedilol 12.5 MG TAB PO SCH (09:57)
[2021-06-19] MEDS: Losartan Potassium 50 MG TAB PO SCH (09:57)
[2021-06-19] MEDS: Liothyronine Sodium 5 MCG TAB PO SCH (09:57)
[2021-06-19] MEDS: Digoxin 0.125 MG TAB PO SCH (09:58)
[2021-06-19] MEDS: Potassium Chloride 20 MEQ TAB PO SCH (09:58)
[2021-06-19] MEDS: Cholecalciferol 1,000 UNITS (25 MCG) TAB PO SCH (09:58)
[2021-06-19] MEDS: cefTRIAXone\\ROCEPHIN 1 GM in Sodium Chloride 0.9% 100 ML IVPB SCH (10:00)
[2021-06-19] MEDS: Lantus 1000 UNITS/10 ML VIAL SC SCH (11:28)
[2021-06-19] MEDS: Nystatin Powder 15 GM BOT TOP SCH (11:31)
[2021-06-19 12:09] VITALS: BP 129/64; TEMP 98.1
[2021-06-19] MEDS: Acetaminophen 325 MG TAB PO PRN ×2 (12:16→17:21)
[2021-06-19 15:52] LABS: SARS-CoV-2 PCR by NAA Not Detected (NotDetected)
[2021-06-19] MEDS ORDERED: cefTRIAXone\\ROCEPHIN 2 GM in Sodium Chloride 0.9% 100 ML IVPB SCH (21:00)
== END 2021-06-19 17:38 | DRG 435 ==
LOC: CSHERS 09:19 → CSHTELE 17:48 → INTOOBSV 17:48 → OBSVTOIN 06-11 23:13
PROVIDERS: ADMIT Internal Medicine; ATTEND Internal Medicine
PROC: 0W9G3ZZ Drainage of Peritoneal Cavity, Percutaneous Approach (ICD-10-PCS; 2021-06-16)
PROC: 02HV33Z Insertion of Infusion Device into Superior Vena Cava, Percutaneous Approach (ICD-10-PCS; 2021-06-17)
PROC: B5181ZA Fluoroscopy of Superior Vena Cava using Low Osmolar Contrast, Guidance (ICD-10-PCS; 2021-06-17)
PROC: B548ZZA Ultrasonography of Superior Vena Cava, Guidance (ICD-10-PCS; 2021-06-17)
PROC: 0FB13ZX Excision of Right Lobe Liver, Percutaneous Approach, Diagnostic (ICD-10-PCS; principal; 2021-06-18)
DX: C22.0 Liver cell carcinoma (principal); I33.0 Acute and subacute infective endocarditis; R18.8 Other ascites; N39.0 Urinary tract infection, site not specified; I48.21 Permanent atrial fibrillation; Z68.41 Body mass index [BMI] 40.0-44.9, adult; R78.81 Bacteremia; Z20.822 Contact with and (suspected) exposure to COVID-19; K74.60 Unspecified cirrhosis of liver; D64.9 Anemia, unspecified; E87.70 Fluid overload, unspecified; R74.01 Elevation of levels of liver transaminase levels; I89.0 Lymphedema, not elsewhere classified; I25.5 Ischemic cardiomyopathy; E11.649 Type 2 diabetes mellitus with hypoglycemia without coma; E66.01 Morbid (severe) obesity due to excess calories; E78.5 Hyperlipidemia, unspecified; L40.50 Arthropathic psoriasis, unspecified; I10 Essential (primary) hypertension; Z88.8 Allergy status to other drugs, medicaments and biological substances; Z79.01 Long term (current) use of anticoagulants; Z79.4 Long term (current) use of insulin; Z90.49 Acquired absence of other specified parts of digestive tract; Z90.710 Acquired absence of both cervix and uterus; Z95.0 Presence of cardiac pacemaker; Z86.79 Personal history of other diseases of the circulatory system; Z86.73 Personal history of transient ischemic attack (TIA), and cerebral infarction without residual deficits
CPT/HCPCS: 36415; 36416; 36430; 36569; 47000; 49083; 51701; 71045; 74150; 74177; 76705; 80048; 80053; 80202; 81003; 81015; 82105; 82150; 82553; 82945; 83605; 83735; 83880; 84157; 84443; 84484; 85025; 85610; 85730; 86850; 86900; 86901; 87040; 87070; 87077; 87149; 87186; 87205; 88112; 88305; 88307; 88341; 88342; 89051; 93005; 93306; 94760; 96365; 96375; 96376; C1751; G0378; J0290; J0696; J1650; J1815; J1940; J2916; J3370; J3490; J7050; J7999; P9016; P9047; Q9967; U0003; U0005